=== PATIENT | female | born 2000 | race Caucasian/White ===

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

== ENCOUNTER 2022-09-04 14:21 | Emergency (ER) | payer MEDICAID, SELFPAY ==
[2022-09-04 14:22] VITALS: BP 133/84; PULSE 96; RESP 16; TEMP 36.6; O2SAT 98; BMI 26.3
[2022-09-04 14:35] LABS: Bacteria 0 SEEN /hpf (None Seen); Color, Urine Yellow (Yellow); Glucose, Dipstick Normal (Normal); Ketone-Dipstick Negative (Negative); Leukocyte Esterase-Dipstick 25 /ul (Negative); Mucous, Urine 0 SEEN /hpf (<or=2+); Nitrite-Dipstick Negative (Negative); Occult Blood-Urine 150 /ul (Negative); Protein-Dipstick Negative (Negative); Red Blood Cells-Urine 0 SEEN /hpf (0-5); Squamous Epithelial Cells - UA 0 SEEN /hpf (5-10); Urine Bilirubin Dipstick Negative (Negative); Urine Clarity Clear (Clear); Urine Urobilinogen Normal (Normal); Urine pH 6.5 (5.0 - 8.0); White Blood Cells 0 SEEN /hpf (0-5)
[2022-09-04 14:43] LABS: Internal QC Validated? YES +Cl - CLEAR BKGD; Pregnancy, Urine Negative Negative
--- NOTE | 2022-09-04 15:55 | US_ITS ---
INDICATION: bilat pelvic pain EXAMINATION: Ultrasound US Transvaginal Non-OB TECHNIQUE: Transvaginal (for optimal evaluation of the adnexa) pelvic ultrasound was performed. Grayscale, spectral waveform, and color flow Doppler evaluation of the adnexa. COMPARISON: None. FINDINGS: UTERUS: Anteverted. The uterus measures 7.8 x 4.6 x 4.0 cm. There is no uterine mass. The endometrial stripe measures 2.1 mm in AP diameter which is within normal limits. RIGHT OVARY: 5.3 x 5.0 x 2.8 cm. 4.0 x 4.7 x 2.6 cm cyst. There is normal arterial inflow and venous outflow present in the right ovary. LEFT OVARY: 2.5 x 1.9 x 1.7 cm. Non-enlarged, normal echogenicity. There is normal arterial inflow and venous outflow present in the left ovary. FREE FLUID: None. US/Transvaginal Non- IMPRESSION: 4.7 cm right ovarian simple cyst. Otherwise unremarkable pelvic ultrasound. Electronically Signed: Dejon Chen MD at 17:07 EDT ,
--- NOTE | 2022-09-04 15:56 | EDS_ITS ---
HPI HPI - GI History of Present Illness Chief Complaint: Abd Pain Informant: patient Narrative Narrative: 22-year-old healthy female states she has been having pelvic pain for about 4 months, its been worse in the last 2 months and she cannot get in to see her manager of loss prevention operations until October. Therefore she presents to have this evaluated. She states 4 months ago or so she had an ultrasound that showed a cyst on the left ovary, she was having pain on the right then. Now it is throughout her pelvis, probably worse on the right she states. She has Nexplanon. She is G1, P1 with a son. She has a normal typical minor mucousy asymptomatic discharge and nothing more than that. Last normal menstrual cycle was 08/10, she usually has irregular and did not notice that the pain was worse during the cycle. [place] makes it significantly worse. She has constipation and notices no improvement after having a bowel movement. She denies any fevers, chills, other abdominal pains, differences with food, she has had some nausea but no vomiting. She and her significant other did have chlamydia once but they both were treated and she denies any history of other STIs or suspicion of [address] Medina for [employer]. [facility] Medical History (Updated 09/04/22 @ 17:[address] Sean Briceno MD) Chlamydia infection affecting Depression Home Medications citalopram 10 mg tablet 30 mg PO DAILY 09/04/22 [History Last Taken Unknown] Allergy/AdvReac Type Severity Reaction Status Date / Time No Known Allergies Allergy Verified 09/04/22 14:24 Surgical History (Updated 11/04/20 @ 21:45 by Leanne Boyd) History of surgery Social History Smoking Status: Current every day smoker tobacco type: e-cigarettes ROS ROS ED Constitutional Constitutional ED: Denies anorexia, chills or fever(s) Eyes Eyes: Denies change in vision or diplopia ENT ENT ED: Denies rhinorrhea or sore throat Cardiovascular Cardiovascular: Denies chest pain or palpitations Respiratory/Chest Respiratory/Chest: Denies cough or dyspnea Gastrointestinal Gastrointestinal: Reports abdominal pain and nausea; Denies diarrhea or vomiting Genitourinary Genitourinary ED: Reports other Details: dyspareunia ; Denies dysuria or hematuria Musculoskeletal Musculoskeletal: Denies back pain or neck pain Integumentary Denies abscess or rash Neurologic Neurologic: Denies headache(s), paresthesias or weakness Psychiatric Psychiatric: Denies anxiety or suicidal thoughts EXAM Physical Exam Const Vital Signs: 09/04/22 14:22 Temperature 97.9 F Temperature Source Temporal Pulse Rate 96 Respiratory Rate 16 Blood Pressure 133/84 H Blood Pressure Mean 100 Pulse Ox 98 Oxygen Delivery Method Room Air Positive well nourished and well developed Constitutional Narrative: Well-appearing General Appearance ED: well developed and NAD HEENT Reports moist mucous membranes normocephalic and atraumatic Eyes PERRL and EOMs intact bilaterally Neck full ROM and supple Resp normal respiratory effort and clear to auscultation bilaterally Cardio regular rate, regular rhythm and no murmurs GI non-distended GI Narrative: Mild diffuse pelvic tenderness. Nontender McBurney's point. No guarding or rebound tenderness. Auscultation: normoactive bowel sounds Palpation: soft Back/Spine no CVA tenderness General Back: other FROM Extremity normal to inspection General Extremety ED: Negative for edema, pulses abnormal or tenderness General Extremity: Negative for edema or pulses abnormal Neuro oriented x3, CN's II-XII intact bilaterally and no sensory deficits noted Sensorium / Orientation: awake and alert Motor Exam: strength 5/5 throughout Skin no rashes or lesions noted and no wounds MDM MDM MDM Narrative Medical decision making narrative: Updated urine which is negative, urinalysis shows no signs of infection, she has not blood in it but states she think she just darted her new period. Obtained a transvaginal ultrasound to evaluate for masses, less likely TOA, less likely torsion given the duration of discomfort, I reviewed the pictures and the radiologist interpretation which I agree with, basically negative for anything acute or abnormal except for a 4.7 cm cyst on the right ovary. Unknown if this is the same cyst she had several months ago or a different one. Discussed with Dr. Pulido who was on-call for her manager of loss prevention operations. She states someone from the office will call her tomorrow to set her up for an appointment sooner than later and patient is comfortable with that plan. Lab Data Attestation: I reviewed the patient's lab results. Labs: Laboratory Results - last 24 hr 09/04/22 14:30 Urine Color Yellow Urine Clarity Clear Urine pH 6.5 Ur Specific [place] 1.020 Urine Protein Negative Urine Glucose (UA) Normal Urine Ketones Negative Urine Occult Blood 150 H Urine Nitrite Negative Urine Bilirubin Negative Urine Urobilinogen Normal Ur Leukocyte Esterase 25 H Urine RBC 0 SEEN Urine WBC 0 SEEN Ur Squamous Epith Cells 0 SEEN Urine Bacteria 0 SEEN Urine Mucus 0 SEEN Urine Test Negative Radiography Diagnostic Testing: Clinical Impression(s) from Imaging Studies Transvaginal US 09/04/22 15:55 IMPRESSION: 4.7 cm right ovarian simple cyst. Otherwise unremarkable pelvic ultrasound. Electronically Signed: Dejon Chen MD at 17:07 EDT , Discharge Plan Triage Chief Complaint: Abd Pain ED Provider: Sean Briceno Dx/Rx/DC Orders Clinical Impression: Pelvic pain, Cyst of right ovary Instructions: ED Pelvic Pain, Unknown Cause Prescriptions: No Action citalopram 10 mg tablet 30 mg PO DAILY Label Comments: Take 3 tablets by mouth once daily. Primary Care Provider: Care Physician,No Primary Referrals: Mariela Alvarez MD [Med Staff - Active Staff] - As soon as possible (Office will call you tomorrow to schedule an appointment very soon) Disposition Disposition: Home, Self Care
[2022-09-04] MEDS: Ondansetron ODT 4 MG Tablet 8 MG PO (16:13)
== END 2022-09-04 17:29 | disposition home or self-care (01) ==
PROVIDERS: Emergency Provider Emergency Medicine; Visit Provider Emergency Medicine
DX: N83.202 Unspecified ovarian cyst, left side (principal); F17.290 Nicotine dependence, other tobacco product, uncomplicated; N94.10 Unspecified dyspareunia
CPT/HCPCS: 76830; 81001; 81025; 99283